=== PATIENT | female | born 2005 | race Caucasian/White ===

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

== ENCOUNTER 2025-04-15 21:05 | Observation (INO) ==
--- NOTE | 2025-04-15 21:31 | Emergency Department Note ---
History of Present Illness General Chief complaint: Flank Pain Stated complaint: RT CHEST/SHOULDER PAIN SINCE Time Seen by Provider: 04/15/25 21:28 History of Present Illness Maximum Pain Intensity: 7 This is an otherwise healthy 19-year-old female who presents to the emergency department via private vehicle with complaints of "right upper quadrant abdominal pain". The patient states this past Thursday when she woke up she began with pain to her right side. She points to the right upper quadrant just inferior to the right anterior/inferior rib region. It is worse with movement, talking/position changes. She states that pain has progressively worsened since this past Thursday. Earlier it was radiating to the right shoulder area. No central chest pain. Intermittent dyspnea. She does feel chills. No vomiting. She denies any pertinent past medical history, surgeries or allergies. There is no hormone use. No calf pain or swelling. No recent trips or travel. No recent surgeries. No history of PE/DVT. Home Medications Medication Instructions Recorded Confirmed Type No Known Home Medications 04/15/25 04/15/25 History Allergies Allergy/AdvReac Type Severity Reaction Status Date / Time No Known Allergies Allergy Verified 04/15/25 23:14 Past Med/Surg History Problem List (Updated 04/16/25 @ 04:17 by Jono Alcazar PA-C) Leukocytosis (Acute) Biliary colic (Acute) Elective induction of labor planned Medical History (Updated 04/16/25 @ 04:17 by Jono Alcazar PA-C) LGA (large for gestational age) fetus Anemia Iron infusions Surgical History History of ear surgery Removal of ear ring. Surgery on ear lobe. Family History (Updated 05/26/21 @ 14:12 by Lauren Chambers, CLAUDIO) Other No known health problems Social History (Updated 05/26/21 @ 14:14 by Lauren Chambers RN) Smoking Status: Current every day smoker Tobacco Type: Cigarettes Age Started Using Tobacco: 13 (Vaped for 1 year ); Second Hand Exposure: No; Do You Dip or Chew Tobacco: No; Tobacco Cessation Education Requested by Patient: No Hx Alcohol Use: No Hx Substance Use: Yes Last Used Substance: Unknown Preferred Language: Yemeni Communication Ability: Effective Visual Impairment: No Limitations Hearing Ability: Normal Mapping Technician Required: No Beliefs That Will Affect Care: None marital status: Single marital status details: Jorge Jackson Current Living Situation: Family Current Living Situation Comment: Lives with mom and dad. Other Information That Helps Us Care for You: No Feels Safe at Home: Yes Safety Concerns: Feels Safe At This Time Diet: regular Dental Care, Regularly: Yes Assistive Devices: Glasses Review of Systems A total of 10 systems reviewed and were otherwise negative Physical Exam Vital Signs Vital Signs - 24 hr 04/15/25 21:10 04/15/25 21:25 04/15/25 21:29 Temperature 37 C Temperature Source Temporal Artery Scan Pulse Rate 101 H 89 Pulse Rate [Apical] 94 H Pulse Rhythm [Apical] Regular Pulse Strength [Apical] Normal Respiratory Rate 16 16 Respiratory Effort / Characteristics Non-Labored Spontaneous Respiratory Depth Normal Respiratory Pattern Regular Blood Pressure 121/86 Blood Pressure [Left Arm] 101/63 Blood Pressure Mean 97 Blood Pressure Mean [Left Arm] 75 Pulse Oximetry 97 99 Oxygen Delivery Method Room Air Room Air Sepsis Recent Fever Within 48 Hours No Sepsis New/Unexplained Change in Mental Status No Sepsis Action Taken by Nursing No Action Required 04/15/25 21:29 04/15/25 23:30 04/16/25 01:17 Temperature Temperature Source Pulse Rate Pulse Rate [Apical] 84 80 Pulse Rhythm [Apical] Pulse Strength [Apical] Respiratory Rate 18 16 Respiratory Effort / Characteristics Respiratory Depth Respiratory Pattern Blood Pressure Blood Pressure [Left Arm] 106/66 107/73 Blood Pressure Mean Blood Pressure Mean [Left Arm] 79 84 Pulse Oximetry 99 99 98 Oxygen Delivery Method Room Air Room Air Sepsis Recent Fever Within 48 Hours Sepsis New/Unexplained Change in Mental Status Sepsis Action Taken by Nursing 04/16/25 01:24 Temperature Temperature Source Pulse Rate 98 H Pulse Rate [Apical] Pulse Rhythm [Apical] Pulse Strength [Apical] Respiratory Rate Respiratory Effort / Characteristics Respiratory Depth Respiratory Pattern Blood Pressure Blood Pressure [Left Arm] Blood Pressure Mean Blood Pressure Mean [Left Arm] Pulse Oximetry Oxygen Delivery Method Sepsis Recent Fever Within 48 Hours Sepsis New/Unexplained Change in Mental Status Sepsis Action Taken by Nursing VITAL SIGNS - Vital signs and nursing notes were reviewed. Stable and afebrile. GENERAL -19-year-old female appearing her stated age who is in no acute distress. Communicates well with provider and answers questions appropriately. SKIN - Without rashes. No meningeal or petechial rash. HEAD - NC/AT. EYES - PERRL with EOMI bilaterally. Sclera anicteric. EARS - No deformities of external structures noted on gross examination bilaterally. NOSE - Midline and without cyanosis. No epistaxis or purulent drainage noted. MOUTH/OROPHARYNX - Without perioral cyanosis. NECK - Neck with FROM. No nuchal rigidity. LUNGS - Chest wall symmetric without accessory muscle use, intercostals retractions, or central cyanosis. Normal vesicular breath sounds CTA B/L. No wheezes, rales, or rhonchi appreciated. CARDIAC - RRR ABDOMEN - Abdominal contour normal without pulsations or visible masses. BS normoactive all four quadrants. There is right upper quadrant abdominal tenderness to palpation. No guarding or rigidity. There is no tenderness overlying the ribs. EXTREMITIES - No clubbing or peripheral cyanosis. +5/5 strength noted in UE/LE bilaterally. NEUROLOGIC - Cranial nerves II through XII grossly intact. PSYCH -alert, oriented and pleasant on exam Course Administered Medications Sodium Chloride (Nss) 1,000 mls @ 75 mls/hr IV .[id number] [facility] Stop: 04/19/25 02:50 Last Admin: 04/16/25 03:13 Dose: 75 mls/hr Documented By: skye Acetaminophen (Ofirmev) 1,000 mg in 100 mls @ 400 mls/hr IV Q8H [facility] Stop: 04/19/25 02:59 Last Infusion: 04/16/25 03:50 Dose: Infused Documented By: skye Admin: 04/16/25 03:18 Dose: 400 mls/hr Documented By: skye Discontinued Medications Piperacillin Sod/Tazobactam Sod (Zosyn) 4.5 gm in 100 mls @ 200 mls/hr IV NOW STA; Protocol Stop: 04/16/25 03:26 Last Admin: 04/16/25 03:51 Dose: 200 mls/hr Documented By: skye Ketorolac Tromethamine (Ketorolac Tromethamine 15 Mg/Ml Vial) 10 mg IV NOW ONE Stop: 04/15/25 21:41 Last Admin: 04/15/25 21:47 Dose: 10 mg Documented By: tiffany Melatonin (Melatonin 3 Mg Tab) 3 mg PO HS ONE Stop: 04/16/25 01:52 Last Admin: 04/16/25 02:03 Dose: 3 mg Documented By: abl Medical Decision Making Laboratory Data 04/15/25 21:25 04/15/25 21:25 Lab Results 04/15/25 04/15/25 04/15/25 Range/Units 21:21 21:25 21:32 WBC 12.06 H (4.8-10.8) K/ul RBC 4.51 (4.20-5.40) M/uL Hgb 13.3 (12.0-16.0) g/dL Hct 40.1 (37.0-47.0) % MCV 88.9 (80.0-100.0) fL MCH 29.5 (25.0-34.0) pg MCHC 33.2 (32.0-36.0) g/dL RDW Std Deviation 43.4 (36.4-46.3) fL RDW Coeff of Gabriella 13.2 (11.5-14.5) % Plt Count 339 (130-400) K/uL MPV 10.6 (9.4-12.4) fL Immature Gran % (Auto) 0.3 % Neut % (Auto) 81.9 % Lymph % (Auto) 10.6 % [place] % (Auto) 6.3 % Eos % (Auto) 0.7 % Baso % (Auto) 0.2 % Neut # (Auto) 9.87 H (1.40-6.50) K/uL Lymph # (Auto) 1.28 (1.20-3.40) K/uL [place] # (Auto) 0.76 H (0.11-0.59) K/uL Eos # (Auto) 0.08 (0.00-0.50) K/uL Baso # (Auto) 0.03 (0.00-0.20) K/uL Immature Gran # (Auto) 0.04 (0.01-0.20) K/uL Sodium 138 (136-145) mmol/L Potassium 3.7 (3.5-5.1) mmol/L Chloride 106 (98-107) mmol/L Carbon Dioxide 23 (21-32) mmol/L Anion Gap 9 (3-11) BUN 8 (6-23) mg/dl Creatinine 0.64 (0.6-1.2) mg/dl Est Cr Clr Drug Dosing 116.9 ml/min eGFR 129.67 BUN/Creatinine Ratio 12.5 (10-20) Glucose 105 H (70-99(Fasting)) mg/dl Calcium 9.3 (8.6-10.3) mg/dl Total Bilirubin 0.6 (0.2-1.0) mg/dl AST 14 (13-39) U/L ALT 7 (7-52) U/L Alkaline Phosphatase 62 (34-104) U/L Troponin I High Sens < 2.3 (0-14) pg/ml Total Protein 7.0 (6.0-8.3) gm/dl Albumin 3.7 (3.4-5.0) gm/dl Globulin 3.3 (2.5-4.0) gm/dl Albumin/Globulin Ratio 1.1 (0.9-2) Lipase 9 L (11-82) U/L HCG, Qual Negative (Negative) Urine Color Yellow Urine Appearance Cloudy A (Clear) Urine pH 6.0 (4.5-7.5) Ur Specific [place] 1.031 H (1.000-1.030) Urine Protein Trace H (Negative) Urine Glucose (UA) Negative (Negative) Urine Ketones 2+ H (Negative) Urine Blood 2+ H (Negative) Urine Nitrite Negative (Negative) Urine Bilirubin Negative (Negative) Urine Urobilinogen Negative (Negative) Ur Leukocyte Esterase 2+ H (Negative) Urine WBC (Auto) >50 H (0-5) /hpf Urine RBC (Auto) 0-2 (0-2) /hpf U Hyaline Cast (Auto) 0-2 (0-2) /lpf U Epithel Cells (Auto) 11-20 H (0-2) /hpf Urine Bacteria (Auto) 3+ H (None Seen) POC Ur Test NEG (NEG) Urine Comment Imaging Data Radiologist's Impression: Gallbladder Ultrasound 04/15/25 21:40 Exam(s): US GALLBLADDER EXAM: US Abdomen Limited, Gallbladder CLINICAL HISTORY: RUQ abd pain. TECHNIQUE: Real-time ultrasound of the right upper quadrant with image documentation. COMPARISON: No relevant prior studies available. FINDINGS: Liver: The liver is heterogeneous in appearance, measuring 16.7 cm in length. The portal vein is patent with flow directed towards the liver. Gallbladder: Echogenic rounded structures noted in the gallbladder which appear to be non mobile, measuring up to 4 mm. There is also echogenic sludge in the gallbladder. The gallbladder wall measures 2.9 mm. No pericholecystic fluid. There is a reported positive sonographic Sampson's sign. Common bile duct: The common bile duct measures 3.7 mm. No stones. No dilation. Pancreas: Visualized segments of the pancreas are unremarkable. Right kidney: The right kidney measures 10.5 x 4.5 x 4.5 cm. Inferior vena cava: The IVC is unremarkable. Free fluid: No free fluid. IMPRESSION: 1. Echogenic rounded structures noted in the gallbladder which appear to be non mobile, measuring up to 4 mm. Favor gallbladder wall polyps over nonmobile gallstones. There is also echogenic sludge in the gallbladder. No associated sonographic findings to suggest acute cholecystitis. However, there is a reported positive sonographic Sampson's sign. Findings are equivocal sonographically. Functional radionuclide imaging of the gallbladder may be performed in clinically equivocal cases. 2. No biliary dilatation. Electronically signed by: Tay Sheridan MD 04/16/25 00:50 AM Chest X-Ray 04/15/25 21:41 Exam(s): XR CXR 1 VIEW EXAM: XR Chest, 1 View CLINICAL HISTORY: RUQ abd pain, dyspnea. TECHNIQUE: Frontal view of the chest. COMPARISON: No relevant prior studies available. FINDINGS: Lungs: No focal consolidation. The pulmonary vasculature demonstrates no significant radiographic abnormality. Pleural space: No significant abnormality. No pneumothorax. No large pleural effusion. Heart: No significant abnormality. No cardiomegaly. Mediastinum: No significant abnormality identified. The trachea is midline. Bones/joints: No significant abnormality. No acute fracture. IMPRESSION: No focal consolidation or acute cardiopulmonary process identified. Electronically signed by: Tay Sheridan MD 04/15/25 23:59 PM MDM Narrative Patient was seen and evaluated as above in room B03. Review was performed of triage nursing notes and vital signs. After obtaining a thorough history and physical examination the above work up was performed. Patient presents to us today with right upper quadrant abdominal pain. She is tender in the right upper quadrant on assessment. EKG performed noting right upper quadrant abdominal pain that radiates to the right scapular region. Per my interpretation this reveals normal sinus rhythm at a rate of 79 bpm. QTc 408. QRS 92. No ST elevation on this rhythm tracing. Options of care were discussed with the patient. IV access was established. Labs were drawn. IV Toradol was ordered for pain. Leukocytosis 12.06. No anemia. No emergent metabolic disturbance. Troponin negative. Lipase not elevated. hCG negative. Urinalysis with what is likely mildly contaminated sample. Ultrasound as above. Stones versus polyps in the gallbladder with some sludge. Chest x-ray per my interpretation negative for acute process. Noting the right upper quadrant abdominal tenderness, ultrasound findings of leukocytosis case was discussed with the general surgery service. They came to evaluate the patient. Please refer to further documentation regarding the patient's stay. Patient did request something to help sleep as she will be admitted to the hospital under observation with the general surgery service. I did order oral melatonin after discussing benefits vs risks with the patient. GCS: 15 In the evaluation and treatment of this patient the following differential diagnoses were entertained: Cholecystitis, pancreatitis, PE, pneumonia, among others. Impression & Plan Biliary colic, Leukocytosis Discharge Plan Visit Data Chief Complaint: Flank Pain Stated Complaint: RT CHEST/SHOULDER PAIN SINCE THU, SOB ED Provider: Milan Vee ED Midlevel Provider: Jono Alcazar Discharge Problem: Biliary colic, Leukocytosis Patient Disposition: Admitted As Inpatient Condition: Good Discharge Instructions Interventions: ED Discharge Assessment Last Done: 04/16/25 02:35
[2025-04-15] MEDS: KETOROLAC TROMETHAMINE 15 MG/ML VIAL IV ONE (21:47)
[2025-04-15 22:10] LABS: Appearance Urine Cloudy (Clear); Bacteria Urine Automated 3+ (None Seen); Cast Urine Automated 0-2 /lpf (0-2); Glucose Urine UA Negative (Negative); RBC Urine Automated 0-2 /hpf (0-2); WBC Urine Automated >50 /hpf (0-5)
[2025-04-15 22:16] LABS: Alanine Aminotransferase 7 U/L (7-52); Albumin Globulin Ratio 1.1 (0.9-2); Albumin Level 3.7 gm/dl (3.4-5.0); Alkaline Phosphatase 62 U/L (34-104); Anion Gap 9 (3-11); Bilirubin,Total 0.6 mg/dl (0.2-1.0); Blood Urea Nitrogen 8 mg/dl (6-23); Calcium 9.3 mg/dl (8.6-10.3); Carbon Dioxide 23 mmol/L (21-32); Chloride 106 mmol/L (98-107); Creatinine Clr Calc Pharmacy 116.9 ml/min; Globulin 3.3 gm/dl (2.5-4.0); Glucose 105 mg/dl (70-99(Fasting)); Lipase 9 U/L (11-82); Potassium 3.7 mmol/L (3.5-5.1); Sodium 138 mmol/L (136-145); Total Protein 7.0 gm/dl (6.0-8.3)
[2025-04-15 22:25] LABS: Pregnancy Test, Serum Negative (Negative)
[2025-04-15 22:46] LABS: Hematocrit (blood only) 40.1 % (37.0-47.0); Hemoglobin 13.3 g/dL (12.0-16.0); Immature Granulocytes # (auto) 0.04 K/uL (0.01-0.20); Immature Granulocytes % (auto) 0.3 %; Mean Corpuscular Hemoglobin 29.5 pg (25.0-34.0); Mean Corpuscular Volume 88.9 fL (80.0-100.0); Platelet Count 339 K/uL (130-400); RDW Standard Deviation 43.4 fL (36.4-46.3); Red Blood Count 4.51 M/uL (4.20-5.40); White Blood Count 12.06 K/ul (4.8-10.8)
--- NOTE | 2025-04-16 | XRay Report ---
Exam(s): XR CXR 1 VIEW EXAM: XR Chest, 1 View CLINICAL HISTORY: RUQ abd pain, dyspnea. TECHNIQUE: Frontal view of the chest. COMPARISON: No relevant prior studies available. FINDINGS: Lungs: No focal consolidation. The pulmonary vasculature demonstrates no significant radiographic abnormality. Pleural space: No significant abnormality. No pneumothorax. No large pleural effusion. Heart: No significant abnormality. No cardiomegaly. Mediastinum: No significant abnormality identified. The trachea is midline. Bones/joints: No significant abnormality. No acute fracture. IMPRESSION: No focal consolidation or acute cardiopulmonary process identified. Electronically signed by: Tay Sheridan MD 04/15/25 23:59 PM
--- NOTE | 2025-04-16 00:51 | Ultrasound Report ---
Exam(s): US GALLBLADDER EXAM: US Abdomen Limited, Gallbladder CLINICAL HISTORY: RUQ abd pain. TECHNIQUE: Real-time ultrasound of the right upper quadrant with image documentation. COMPARISON: No relevant prior studies available. FINDINGS: Liver: The liver is heterogeneous in appearance, measuring 16.7 cm in length. The portal vein is patent with flow directed towards the liver. Gallbladder: Echogenic rounded structures noted in the gallbladder which appear to be non mobile, measuring up to 4 mm. There is also echogenic sludge in the gallbladder. The gallbladder wall measures 2.9 mm. No pericholecystic fluid. There is a reported positive sonographic Sampson's sign. Common bile duct: The common bile duct measures 3.7 mm. No stones. No dilation. Pancreas: Visualized segments of the pancreas are unremarkable. Right kidney: The right kidney measures 10.5 x 4.5 x 4.5 cm. Inferior vena cava: The IVC is unremarkable. Free fluid: No free fluid. IMPRESSION: 1. Echogenic rounded structures noted in the gallbladder which appear to be non mobile, measuring up to 4 mm. Favor gallbladder wall polyps over nonmobile gallstones. There is also echogenic sludge in the gallbladder. No associated sonographic findings to suggest acute cholecystitis. However, there is a reported positive sonographic Sampson's sign. Findings are equivocal sonographically. Functional radionuclide imaging of the gallbladder may be performed in clinically equivocal cases. 2. No biliary dilatation. Electronically signed by: Tay Sheridan MD 04/16/25 00:50 AM
--- NOTE | 2025-04-16 01:38 | History & Physical Report ---
Date of Service April 16, 2025 Assessment & Plan (1) Biliary colic: Plan: Patient is a 19-year-old female who presented to the emergency room with RUQ abdominal pain for the last 4 days. Upon workup she was found to have a WBC of 12.06, LFT wnl, and US findings of gallstones vs polyps with sludge. The patient was seen and evaluated in the emergency department this morning. Despite receiving pain medication she is still having significant right upper quadrant a bdominal pain and is tender on exam. I did discuss with the patient treatment options and she would like to undergo surgical intervention if warranted. For now we will admit the patient under the surgical service for observation. Keep n.p.o., IV fluid hydration, pain control, and antiemetics as needed. Patient started on IV Zosyn for antibiotic coverage. Will discuss patient's case with attending surgeon, Dr. Murray and final surgical plans to follow. History of Present Illness Chief Complaint: RUQ abdominal pain The patient is a 19-year-old female who presented to the emergency department with complaints of right upper quadrant abdominal pain. The patient states the pain started roughly 4 days ago that had woken her up from sleep. The patient states that the pain has been ongoing since and has progressively gotten worse. Patient states that the pain at times does radiate into her ribs and to the back of her right shoulder. States that certain movements also makes the pain worse at times. The patient denies any associated nausea, vomiting, fevers or chills. Due to the ongoing pain she came to the ED for further evaluation, upon workup she was found to have a slight leukocytosis of 12.06 and ultrasound imaging concerning for gallstones versus polyps with sludge. At that time general surgery was consulted for further evaluation of the patient. The patient was seen and evaluated early this morning in the emergency department. She is resting comfortably in bed, vital signs are stable, and is nontoxic-appearing. The patient states that despite receiving pain medication she is still having ongoing right upper quadrant pain at this time. On exam she does have tenderness in the right upper quadrant with positive Sampson sign. The patient otherwise denies any medical or surgical history, however she does smoke marijuana regularly. Allergies Allergy/AdvReac Type Severity Reaction Status Date / Time No Known Allergies Allergy Verified 04/15/25 23:14 Home Medications Medication Instructions Recorded Confirmed Type No Known Home Medications 04/15/25 04/15/25 History Past Med/Surg History Problem List (Updated 04/16/25 @ 07:38 by Twin Drake MD) Encounter for pre-operative examination LGA (large for gestational age) fetus Leukocytosis (Acute) Biliary colic (Acute) Elective induction of labor planned Medical History LGA (large for gestational age) fetus Anemia Iron infusions Surgical History History of ear surgery Removal of ear ring. Surgery on ear lobe. Family History Other No known health problems Social History (Updated 05/26/21 @ 14:14 by Lauren Chambers RN) Smoking Status: Current every day smoker Tobacco Type: Cigarettes Age Started Using Tobacco: 13 (Vaped for 1 year ); Second Hand Exposure: No; Do You Dip or Chew Tobacco: No; Tobacco Cessation Education Requested by Patient: No Hx Alcohol Use: No Hx Substance Use: Yes Last Used Substance: Unknown Preferred Language: [place] Communication Ability: Effective Visual Impairment: No Limitations Hearing Ability: Normal Joint Creaser Required: No Beliefs That Will Affect Care: None marital status: Single marital status details: Jorge Jackson Current Living Situation: Family Current Living Situation Comment: Lives with mom and dad. Other Information That Helps Us Care for You: No Feels Safe at Home: Yes Safety Concerns: Feels Safe At This Time Diet: regular Dental Care, Regularly: Yes Assistive Devices: Glasses Review of Systems Constitutional: no fever, no chills and no body aches Respiratory: no cough and no chest congestion Cardiovascular: no chest pain, no palpitations and no syncope Gastrointestinal: + abdominal pain; no nausea, no vomiting and no change in bowel habits Genitourinary: no difficulty urinating and no hematuria Physical Exam Constitutional: WD/WN, vitals as above Respiratory: normal respiratory effort, lungs clear to auscultation Cardiovascular: RRR, no murmur, no edema Gastrointestinal (Abdomen): Abdomen soft, nondistended, +TTP in the RUQ with +Sampson's sign No rebound, guarding or signs of peritonitis Skin: no rashes, warm and dry Results & Data Results & Data Vital Signs (Past 12 Hours) Vital Signs Temp Pulse Pulse Resp BP BP Pulse Ox 04/16/25 01:24 98 H 04/16/25 01:17 80 16 107/73 98 04/15/25 23:30 84 18 106/66 99 04/15/25 21:29 99 04/15/25 21:29 94 H 16 101/63 99 04/15/25 21:25 89 04/15/25 21:10 37 C 101 H 16 121/86 97 O2 Del Method 04/16/25 01:24 04/16/25 01:17 Room Air 04/15/25 23:30 04/15/25 21:29 Room Air 04/15/25 21:29 Room Air 04/15/25 21:25 04/15/25 21:10 Room Air Diagnostic Findings Exam(s): US GALLBLADDER EXAM: US Abdomen Limited, Gallbladder CLINICAL HISTORY: RUQ abd pain. TECHNIQUE: Real-time ultrasound of the right upper quadrant with image documentation. COMPARISON: No relevant prior studies available. FINDINGS: Liver: The liver is heterogeneous in appearance, measuring 16.7 cm in length. The portal vein is patent with flow directed towards the liver. Gallbladder: Echogenic rounded structures noted in the gallbladder which appear to be non mobile, measuring up to 4 mm. There is also echogenic sludge in the gallbladder. The gallbladder wall measures 2.9 mm. No pericholecystic fluid. There is a reported positive sonographic Sampson's sign. Common bile duct: The common bile duct measures 3.7 mm. No stones. No dilation. Pancreas: Visualized segments of the pancreas are unremarkable. Right kidney: The right kidney measures 10.5 x 4.5 x 4.5 cm. Inferior vena cava: The IVC is unremarkable. Free fluid: No free fluid. IMPRESSION: 1. Echogenic rounded structures noted in the gallbladder which appear to be non mobile, measuring up to 4 mm. Favor gallbladder wall polyps over nonmobile gallstones. There is also echogenic sludge in the gallbladder. No associated sonographic findings to suggest acute cholecystitis. However, there is a reported positive sonographic Sampson's sign. Findings are equivocal sonographically. Functional radionuclide imaging of the gallbladder may be performed in clinically equivocal cases. 2. No biliary dilatation. Code Status & VTE Plan VTE Prophylaxis Plan VTE Prophylaxis will be ordered: Yes Supervising Physician Co-Signing Physician Notes I personally saw and evaluated the patient and agree with the assessment and plan of Yobani Jain PA-C 19-year-old female with symptomatic gallbladder sludge versus acute cholecystitis Her ultrasound images and results were personally viewed and interpreted by myself She does have some sludge without any lu signs of cholecystitis She continues to have right sided pain Will plan on a laparoscopic cholecystectomy, possible open, possible intraoperative cholangiogram Consent was obtained, risks discussed including bleeding, infection, bile leak, ductal injury PG Care Time/CCT Total # of Minutes Spent Total Time Spent with Patient: Total time spent is greater than 50% in coordination of care (as documented) at patient's floor/unit and/or counseling patient: [place] [address] INT INP/OBS CARE 1/40MIN Patient Type New Medical Decision Making Straight Forward Diagnoses Biliary colic K80.50
[2025-04-16] MEDS: MELATONIN 3 MG TAB PO ONE (02:03)
[2025-04-16] MEDS ORDERED: HYDROmorphone INJ 0.5 MG/0.5 ML SYR IV PRN (02:51)
[2025-04-16] MEDS: SODIUM CHLORIDE 0.9% 1,000 ML IV SCH (03:13)
[2025-04-16] MEDS: ACETAMINOPHEN 1,000 MG/100 ML VIAL IV SCH (03:18)
[2025-04-16] MEDS: PIPERACILLIN/TAZOBACTAM 4.5 GM/100 ML BAG IV STA (03:51)
--- NOTE | 2025-04-16 07:38 | Anesthesiology Consultation ---
Date of Service April 16, 2025 Assessment & Plan (1) Encounter for pre-operative examination: Chart Review Chart Review: Acceptable Risk for Surgery History Surgery Operation Date: 04/16/25 09:30 Proposed Procedures p Laparoscopic Cholecystectomy - Royal Murray DO Height/Weight Height: 5 ft 4 in Weight: 52.8 kg Allergies Allergy/AdvReac Type Severity Reaction Status Date / Time No Known Allergies Allergy Verified 04/15/25 23:14 Medications Home Medications Medication Instructions Recorded Confirmed Last Taken No Known Home Medications 04/15/25 04/15/25 Unknown Active Medications Generic Name Dose Route Start Last Admin Trade Name Freq PRN Reason Stop Dose Admin Sodium Chloride 1,000 mls @ 75 mls/hr 04/16/25 02:51 04/16/25 03:13 Nss IV 04/19/25 02:50 75 mls/hr .[id number] NATHANIEL Administration Acetaminophen 1,000 mg in 100 mls @ 400 mls/hr 04/16/25 03:00 04/16/25 03:50 Ofirmev IV 04/19/25 02:59 Infused Q8H NATHANIEL Infusion Past Medical History Medical History (Updated 04/16/25 @ 07:38 by Twin Drake MD) Anemia Iron infusions Past Family History Family History Other No known health problems Past Surgical History Surgical History History of ear surgery Removal of ear ring. Surgery on ear lobe. Social History Smoking Status: Current every day smoker tobacco type: e-cigarettes Do You Dip or Chew Tobacco: No Hx Alcohol Use: No Hx Substance Use: Yes substance use type: marijuana Last Used Substance: Unknown Physical Exam Vital Signs Last Vital Signs Temp 36.7 C 04/16/25 02:55 Pulse 85 04/16/25 02:55 Resp 18 04/16/25 02:55 BP 98/64 L 04/16/25 02:55 Pulse Ox 98 04/16/25 02:55 O2 Del Method Room Air 04/16/25 02:55 Testing Laboratory Results 04/15/25 21:25 04/15/25 21:25 Urine Color Yellow 04/15/25 21:21 Urine Appearance Cloudy (Clear) A 04/15/25: Urine pH 6.0 (4.5-7.5) 04/15/25 21:21 Ur Specific [place] 1.031 (1.000-1.030) H 04/15/25 21:21 Urine Protein Trace (Negative) H 04/15/25 21:21 Urine Glucose (UA) Negative (Negative) 04/15/25 21:21 Urine Ketones 2+ (Negative) H 04/15/25 21:21 Urine Nitrite Negative (Negative) 04/15/25 21:21 Ur Leukocyte Esterase 2+ (Negative) H 04/15/25 21:21 Urine WBC (Auto) >50 /hpf (0-5) H 04/15/25 21:21 Urine RBC (Auto) 0-2 /hpf (0-2) 04/15/25 21:21 U Hyaline Cast (Auto) 0-2 /lpf (0-2) 04/15/25 21:21 U Epithel Cells (Auto) 11-20 /hpf (0-2) H 04/15/25 21:21 Urine Bacteria (Auto) 3+ (None Seen) H 04/15/25 21:21 04/15/25 21:21 Urine Culture - Preliminary Urine,Clean Catch No growth - Less than 1,000 colonies/mL, Final report to follow. 04/15/25 21:32 POC Ur Test NEG
[2025-04-16] MEDS: PIPERACILLIN/TAZOBACTAM 4.5 GM/100 ML BAG IV SCH (08:20)
[2025-04-16] MEDS: BUPIVACAINE/EPINEPHRINE 0.25% 1:200,000 30 ML VIAL ONE (09:34)
--- NOTE | 2025-04-16 09:44 | Electrocardiogram Report ---
Test Reason : Blood Pressure : */* mmHG Vent. Rate : 79 BPM Atrial Rate : 79 BPM P-R Int : 182 ms QRS Dur : 92 ms QT Int : 356 ms P-R-T Axes : 71 64 64 degrees QTcB Int : 408 ms Normal sinus rhythm Normal ECG No previous ECGs available Confirmed by Storm Del Rosario ([id number]) on 04/16/2025 9:44:30 AM Referred By: REFERRED SELF Confirmed By: Storm Del Rosario
[2025-04-16] MEDS ORDERED: PROMETHAZINE HCL 6.25 MG in SODIUM CHLORIDE 0.9% 50 ML IV PRN (10:34)
[2025-04-16] MEDS ORDERED: KETOROLAC 30 MG/ML VIAL IV PRN (10:34)
[2025-04-16] MEDS ORDERED: ATROPINE SULFATE 0.1 MG/ML 10ML SYR IV PRN (10:34)
[2025-04-16 10:37] LABS: Hematocrit (blood only) 36.1 % (37.0-47.0); Hemoglobin 11.7 g/dL (12.0-16.0); Immature Granulocytes # (auto) 0.04 K/uL (0.01-0.20); Immature Granulocytes % (auto) 0.4 %; Mean Corpuscular Hemoglobin 29.1 pg (25.0-34.0); Mean Corpuscular Volume 89.8 fL (80.0-100.0); Platelet Count 298 K/uL (130-400); RDW Standard Deviation 43.8 fL (36.4-46.3); Red Blood Count 4.02 M/uL (4.20-5.40); White Blood Count 10.05 K/ul (4.8-10.8)
[2025-04-16] MEDS ORDERED: ROCURONIUM BROMIDE 10 MG/ML 5 ML VIAL IV ONE (10:41)
[2025-04-16] MEDS ORDERED: DEXAMETHASONE SOD INJ 4 MG/ML VIAL ONE (10:41)
[2025-04-16] MEDS ORDERED: LIDOCAINE 2% 2 ML VIAL/AMP(20MG/ML) INFIL ONE (10:41)
[2025-04-16] MEDS ORDERED: PROPOFOL IV EMULSION 10 MG/ML 20 ML VIAL IV ONE ×2 (10:41→11:42)
[2025-04-16] MEDS ORDERED: ONDANSETRON INJ 2 MG/ML 2 ML VIAL ONE (10:41)
[2025-04-16] MEDS ORDERED: MIDAZOLAM HCL 1 MG/ML 2ML VIAL ONE (10:42)
[2025-04-16 10:53] LABS: Anion Gap 7.0 (3-11); Blood Urea Nitrogen 10.0 mg/dl (6-23); Calcium 8.8 mg/dl (8.6-10.3); Carbon Dioxide 26.0 mmol/L (21-32); Chloride 106.0 mmol/L (98-107); Creatinine Clr Calc Pharmacy 116.9 ml/min; Glucose 95.0 mg/dl (70-99(Fasting)); Potassium 3.8 mmol/L (3.5-5.1); Sodium 139.0 mmol/L (136-145)
[2025-04-16] MEDS ORDERED: SUGAMMADEX SODIUM 200 MG/2 ML VIAL IV ONE (11:31)
--- NOTE | 2025-04-16 11:47 | Post Operative Brief Note ---
PG Immediate Post Op with CF Date of Surgery April 16, 2025 Pre & Post Diagnosis Operation Date: 04/16/25 09:30 Pre-Op Diagnosis: Biliary colic Post-Op Diagnosis: Biliary colic, Right adnexal inflammation I identified the patient and participated in the time-out.: Yes Procedure Operation Date: 04/16/25 09:30 Actual Procedures p Laparoscopic Cholecystectomy(Not Applicable) - Royal Murray DO Surgeon Royal Murray DO Associate Brand Manager Kya Corral PA-C Estimated Blood Loss 5 Findings Consistent with Post-Op Diagnosis Specimens Specimen Description: A: Gallbladder and contents Anesthesia Type General Complications none Disposition Disposition: Recovery Room
--- NOTE | 2025-04-16 11:51 | Operative Report ---
PG Post Operative Report Pre & Post Diagnosis Operation Date: 04/16/25 09:30 Pre-Op Diagnosis: Biliary colic Post-Op Diagnosis: Biliary colic, right adnexal inflammation I identified the patient and participated in the time-out.: Yes Procedure Operation Date: 04/16/25 09:30 Actual Procedures p Laparoscopic Cholecystectomy(Not Applicable) - Royal Murray DO Surgeon Royal Murray DO Terrazzo Worker Kya Corral PA-C Estimated Blood Loss 5 Findings Consistent with Post-Op Diagnosis Fluids see anesthesia record Specimens Gallbladder to pathology Drains None Anesthesia Type General Complications none Disposition Disposition: Recovery Room Indications 19 yo female with gallbladder sludge and right sided abdominal pain Description of Procedure The patient was brought to the operating room and placed in the supine position with both arms extended. At this time she underwent general endotracheal anesthesia without any problems. She was given appropriate pre-operative antibiotics. Her abdomen prepped and draped in the usual sterile fashion. A timeout was called, the procedure was verified as Laparoscopic cholecystectomy, possible open, possible intra-operative cholangiogram. Surgical, nursing and anesthesia teams agreed and the procedure was begun. After injection of 0.25% Marcaine with epinephrine, a infraumbilical vertical incision was made and carried down to the fascia using S-retractors. The abdominal wall was then elevated with towel clamps and abdomen entered using the Veress needle confirming position using the saline drop test. Pneumoperitoneum was established. 5mm trocar was placed. Laparoscope was introduced. No injury from entry into the abdomen was visualized after inspection of the abdomen. Three further ports were placed under direct visualization. One 11mm in the subxiphoid region and two 5mm in the RUQ. At this time the abdomen was inspected and the gallbladder identified. The gallbladder fundus was grasped and retracted cephalad. The entire abdomen appeared erythematous. The gallbladder infundibulum was then grasped and retracted laterally. The cystic duct and cystic artery were then identified and skeletonized. The critical view of safety was obtained. They were both then clipped twice proximally and once distally and then divided using scissors. The gallbladder was then taken off of the liver bed using electrocautery and placed in an endocatch bag and removed from the subxiphoid port. The liver bed was then inspected and no bile leak or bleeding was evident. Using the laparoscope the abdomen was explored. The right lower quadrant revealed some purulence in the right adnexa along with some erythema. The appendix itself was mildly dilated but did not appear because of the inflammation. The appendix was left in place. The subxiphoid port was then closed using 0-Vicryl using the suture passer. The trocars were then removed under direct visualization and no bleeding was present. Abdomen was desufflated. The skin was then closed using 4-0 Monocryl in a subcuticular fashion. Surgical glue was applied. Needle and sponge counts were correct x 2. At this time the patient was awoken from anesthesia and extubated having remained stable throughout the entire case. The patient was then transported to PACU in stable condition. I attest to the content of the Intraoperative Record and any orders documented therein. Any exceptions are noted below.
[2025-04-16 13:32] VITALS: RESP 16
--- NOTE | 2025-04-16 13:34 | OB/GYN Consultation ---
Date of Consultation April 16, 2025 Assessment & Plan (1) PID (acute pelvic inflammatory disease): patient is a 19-year-old -0-0-1 who is postop from laparoscopic cholecystectomy by general surgery who noted signs suggesting PID and ovarian cysts. Patient denies any history of STDs nor pelvic pain. I collected vaginal cultures with Q-tip and plan to do a transvaginal ultrasound when she feels better either tonight or tomorrow morning if not it can be done as an outpatient to. Recommend IV antibiotic therapy for presumed PID, I placed orders and will switch to p.o. tomorrow when she is discharged. All questions were answered. (2) Abdominal pain: (3) Post-op pain: (4) Biliary colic: History of Present Illness Reason for Consultation: PID/ovarian cyst noted during laparoscopic cholecystectomy Attending Physician: Royal Murray, DO History of Present Illness patient is a 19-year-old -0-0-1 female who came to ER with generalized abdominal pain and found to have cholecystitis. She was taken to the OR This morning by Dr. Murray for laparoscopic cholecystectomy when edema, inflammation noted on the fallopian tubes as well as ovarian cyst. I was consulted for consult and possible treat for PID. patient states she had right upper quadrant pain radiating to her right shoulder, denies lower abdominal or pelvic pain. Patient denies abnormal vaginal discharge, itching or smell. She has not been sexually active for long time. She denies any history of STDs including chlamydia gonorrhea or herpes. She gets periods every 4 weeks and they last for 5 days and no pain with them either. Now she complains of generalized abdominal pain due to recent surgery. I ask her to call like cultures but I just created and she accepted. According to surgical team there was a cyst on her ovary, I talked about pelvic ultrasound either tonight when she feels better or tomorrow morning when she leaves. Patient states she she will be able to have it done tonight when she is able to get up and walk and eat. Allergies Allergy/AdvReac Type Severity Reaction Status Date / Time No Known Allergies Allergy Verified 04/15/25 23:14 Home Medications Medication Instructions Recorded Confirmed Type No Known Home Medications 04/15/25 04/15/25 History Patient History Medical History Anemia Iron infusions Surgical History History of ear surgery Removal of ear ring. Surgery on ear lobe. Family History Other No known health problems Social History Smoking Status: Current every day smoker Tobacco Type: Cigarettes Age Started Using Tobacco: 13 (Vaped for 1 year ); Second Hand Exposure: No; Do You Dip or Chew Tobacco: No; Tobacco Cessation Education Requested by Patient: No Hx Alcohol Use: No Hx Substance Use: Yes Last Used Substance: Unknown Preferred Language: Malay Communication Ability: Effective Visual Impairment: No Limitations Hearing Ability: Normal Nutrition Worker Required: No Beliefs That Will Affect Care: None marital status: Single marital status details: Jorge Jackson Current Living Situation: Family Current Living Situation Comment: Lives with mom and dad. Other Information That Helps Us Care for You: No Feels Safe at Home: Yes Safety Concerns: Feels Safe At This Time Diet: regular Dental Care, Regularly: Yes Assistive Devices: Glasses Review of Systems Constitutional: as per Subjective / HPI Physical Exam Constitutional: WD/WN, vitals as above well developed, well nourished and + acute distress ( postop) Gastrointestinal (Abdomen): Inspection/Auscultation: abdomen normal to inspection and + abdominal surgical incision Abdomen is flat, appropriately tender. Patient is a clean dry intact. Genitourinary: deferred, cultures were taken with Q-tip At the bedside with her nurse. Results & Data Vital Signs (Past 12 Hours) Vital Signs Temp Pulse Pulse Pulse Resp BP BP 04/16/25 12:58 37.1 C 79 15 105/66 04/16/25 12:45 81 21 113/72 04/16/25 12:35 37.1 C 85 18 119/66 04/16/25 12:25 85 18 116/70 04/16/25 12:15 88 18 113/68 04/16/25 12:07 36.6 C 103 H 20 118/76 04/16/25 07:00 36.7 C 70 16 95/57 L 04/16/25 02:55 36.7 C 85 18 98/64 L 04/16/25 02:35 85 18 108/66 Pulse Ox O2 Del Method O2 Flow Rate 04/16/25 12:58 97 Room Air 04/16/25 12:45 97 Room Air 04/16/25 12:35 97 Room Air 04/16/25 12:25 100 Nasal Cannula 2 04/16/25 12:15 100 Nasal Cannula 2 04/16/25 12:07 99 Nasal Cannula 4 04/16/25 07:00 98 Room Air 04/16/25 02:55 98 Room Air 04/16/25 02:35 98 Room Air Laboratory Results Lab Results 04/15/25 04/15/25 04/15/25 Range/Units 21:21 21:25 21:32 WBC 12.06 H (4.8-10.8) K/ul RBC 4.51 (4.20-5.40) M/uL Hgb 13.3 (12.0-16.0) g/dL Hct 40.1 (37.0-47.0) % MCV 88.9 (80.0-100.0) fL MCH 29.5 (25.0-34.0) pg MCHC 33.2 (32.0-36.0) g/dL RDW Std Deviation 43.4 (36.4-46.3) fL RDW Coeff of Gabriella 13.2 (11.5-14.5) % Plt Count 339 (130-400) K/uL MPV 10.6 (9.4-12.4) fL Immature Gran % (Auto) 0.3 % Neut % (Auto) 81.9 % Lymph % (Auto) 10.6 % [place] % (Auto) 6.3 % Eos % (Auto) 0.7 % Baso % (Auto) 0.2 % Neut # (Auto) 9.87 H (1.40-6.50) K/uL Lymph # (Auto) 1.28 (1.20-3.40) K/uL [place] # (Auto) 0.76 H (0.11-0.59) K/uL Eos # (Auto) 0.08 (0.00-0.50) K/uL Baso # (Auto) 0.03 (0.00-0.20) K/uL Immature Gran # (Auto) 0.04 (0.01-0.20) K/uL Sodium 138 (136-145) mmol/L Potassium 3.7 (3.5-5.1) mmol/L Chloride 106 (98-107) mmol/L Carbon Dioxide 23 (21-32) mmol/L Anion Gap 9 (3-11) BUN 8 (6-23) mg/dl Creatinine 0.64 (0.6-1.2) mg/dl Est Cr Clr Drug Dosing 116.9 ml/min eGFR 129.67 BUN/Creatinine Ratio 12.5 (10-20) Glucose 105 H (70-99(Fasting)) mg/dl Calcium 9.3 (8.6-10.3) mg/dl Total Bilirubin 0.6 (0.2-1.0) mg/dl AST 14 (13-39) U/L ALT 7 (7-52) U/L Alkaline Phosphatase 62 (34-104) U/L Troponin I High Sens < 2.3 (0-14) pg/ml Total Protein 7.0 (6.0-8.3) gm/dl Albumin 3.7 (3.4-5.0) gm/dl Globulin 3.3 (2.5-4.0) gm/dl Albumin/Globulin Ratio 1.1 (0.9-2) Lipase 9 L (11-82) U/L HCG, Qual Negative (Negative) Urine Color Yellow Urine Appearance Cloudy A (Clear) Urine pH 6.0 (4.5-7.5) Ur Specific [place] 1.031 H (1.000-1.030) Urine Protein Trace H (Negative) Urine Glucose (UA) Negative (Negative) Urine Ketones 2+ H (Negative) Urine Blood 2+ H (Negative) Urine Nitrite Negative (Negative) Urine Bilirubin Negative (Negative) Urine Urobilinogen Negative (Negative) Ur Leukocyte Esterase 2+ H (Negative) Urine WBC (Auto) >50 H (0-5) /hpf Urine RBC (Auto) 0-2 (0-2) /hpf U Hyaline Cast (Auto) 0-2 (0-2) /lpf U Epithel Cells (Auto) 11-20 H (0-2) /hpf Urine Bacteria (Auto) 3+ H (None Seen) POC Ur Test NEG (NEG) Urine Comment 12/21/25 Range/Units 10:09 WBC 10.05 (4.8-10.8) K/ul RBC 4.02 L (4.20-5.40) M/uL Hgb 11.7 L (12.0-16.0) g/dL Hct 36.1 L (37.0-47.0) % MCV 89.8 (80.0-100.0) fL MCH 29.1 (25.0-34.0) pg MCHC 32.4 (32.0-36.0) g/dL RDW Std Deviation 43.8 (36.4-46.3) fL RDW Coeff of Gabriella 13.2 (11.5-14.5) % Plt Count 298 (130-400) K/uL MPV 9.9 (9.4-12.4) fL Immature Gran % (Auto) 0.4 % Neut % (Auto) 81.0 % Lymph % (Auto) 11.1 % [place] % (Auto) 6.2 % Eos % (Auto) 1.1 % Baso % (Auto) 0.2 % Neut # (Auto) 8.14 H (1.40-6.50) K/uL Lymph # (Auto) 1.12 L (1.20-3.40) K/uL [place] # (Auto) 0.62 H (0.11-0.59) K/uL Eos # (Auto) 0.11 (0.00-0.50) K/uL Baso # (Auto) 0.02 (0.00-0.20) K/uL Immature Gran # (Auto) 0.04 (0.01-0.20) K/uL Sodium 139 (136-145) mmol/L Potassium 3.8 (3.5-5.1) mmol/L Chloride 106 (98-107) mmol/L Carbon Dioxide 26 (21-32) mmol/L Anion Gap 7 (3-11) BUN 10 (6-23) mg/dl Creatinine 0.64 (0.6-1.2) mg/dl Est Cr Clr Drug Dosing 116.9 ml/min eGFR 129.67 BUN/Creatinine Ratio 15.6 (10-20) Glucose 95 (70-99(Fasting)) mg/dl Calcium 8.8 (8.6-10.3) mg/dl Total Bilirubin (0.2-1.0) mg/dl AST (13-39) U/L ALT (7-52) U/L Alkaline Phosphatase (34-104) U/L Troponin I High Sens (0-14) pg/ml Total Protein (6.0-8.3) gm/dl Albumin (3.4-5.0) gm/dl Globulin (2.5-4.0) gm/dl Albumin/Globulin Ratio (0.9-2) Lipase (11-82) U/L HCG, Qual (Negative) Urine Color Urine Appearance (Clear) Urine pH (4.5-7.5) Ur Specific [place] (1.000-1.030) Urine Protein (Negative) Urine Glucose (UA) (Negative) Urine Ketones (Negative) Urine Blood (Negative) Urine Nitrite (Negative) Urine Bilirubin (Negative) Urine Urobilinogen (Negative) Ur Leukocyte Esterase (Negative) Urine WBC (Auto) (0-5) /hpf Urine RBC (Auto) (0-2) /hpf U Hyaline Cast (Auto) (0-2) /lpf U Epithel Cells (Auto) (0-2) /hpf Urine Bacteria (Auto) (None Seen) POC Ur Test (NEG) Urine Comment (2) Abdominal pain Abdominal location: right upper quadrant Qualified Code(s): R10.11 - Right upper quadrant pain
[2025-04-16] MEDS: HYDROmorphone INJ 0.5 MG/0.5 ML SYR IV PRN (13:39)
[2025-04-16] MEDS: ONDANSETRON INJ 2 MG/ML 2 ML VIAL IV PRN (13:48)
[2025-04-16] MEDS: PROMETHAZINE HCL INJ 25 MG/ML 1 ML VIAL ONE (13:53)
[2025-04-16] MEDS: SODIUM CHLORIDE 0.9% 50 ML BAG ONE (13:53)
--- NOTE | 2025-04-16 14:46 | Anesthesiology Progress Note ---
Date of Service April 16, 2025 Anesthesia Post Procedure Vital Signs Vital Signs: Temp Pulse Pulse Pulse Resp BP BP 04/16/25 13:55 36.8 C 84 16 120/75 04/16/25 13:29 36.8 C 75 16 106/70 04/16/25 12:58 37.1 C 79 15 105/66 04/16/25 12:45 81 21 113/72 04/16/25 12:35 37.1 C 85 18 119/66 04/16/25 12:25 85 18 116/70 04/16/25 12:15 88 18 113/68 04/16/25 12:07 36.6 C 103 H 20 118/76 04/16/25 07:00 36.7 C 70 16 95/57 L 04/16/25 02:55 36.7 C 85 18 98/64 L 04/16/25 02:35 85 18 108/66 04/16/25 01:24 98 H 04/16/25 01:17 80 16 107/73 04/15/25 23:30 84 18 106/66 04/15/25 21:29 04/15/25 21:29 94 H 16 101/63 04/15/25 21:25 89 04/15/25 21:10 37 C 101 H 16 121/86 Pulse Ox O2 Del Method O2 Flow Rate 04/16/25 13:55 99 Room Air 04/16/25 13:29 97 Room Air 04/16/25 12:58 97 Room Air 04/16/25 12:45 97 Room Air 04/16/25 12:35 97 Room Air 04/16/25 12:25 100 Nasal Cannula 2 04/16/25 12:15 100 Nasal Cannula 2 04/16/25 12:07 99 Nasal Cannula 4 04/16/25 07:00 98 Room Air 04/16/25 02:55 98 Room Air 04/16/25 02:35 98 Room Air 04/16/25 01:24 04/16/25 01:17 98 Room Air 04/15/25 23:30 99 04/15/25 21:29 99 Room Air 04/15/25 21:29 99 Room Air 04/15/25 21:25 04/15/25 21:10 97 Room Air Pain Intensity Right Upper Abdomen: Pain Intensity: 3 Abdomen: Pain Intensity: 3 Transfer of Care Handoff Completed per policy Notes Mental Status: alert / awake / arousable Patient Amnestic to Procedure: Yes Nausea / Vomiting: adequately controlled Pain: adequately controlled Airway Patency, RR, SpO2: stable & adequate BP & HR: stable & adequate Hydration State: stable & adequate Anesthetic Complications: no major complications apparent
[2025-04-16] MEDS: metroNIDAZOLE 500 MG/100 ML BAG IV SCH (16:18)
[2025-04-16] MEDS: cefTRIAXone SODIUM 2,000 MG/50 ML BAG IV SCH (16:55)
[2025-04-17 04:06] VITALS: TEMP 97.9
[2025-04-17] MEDS: ACETAMINOPHEN 325 MG TAB PO PRN (04:47)
[2025-04-17 05:00] LABS: Hematocrit (blood only) 32.5 % (37.0-47.0); Hemoglobin 10.8 g/dL (12.0-16.0); Immature Granulocytes # (auto) 0.03 K/uL (0.01-0.20); Immature Granulocytes % (auto) 0.3 %; Mean Corpuscular Hemoglobin 29.4 pg (25.0-34.0); Mean Corpuscular Volume 88.6 fL (80.0-100.0); Platelet Count 323 K/uL (130-400); RDW Standard Deviation 42.5 fL (36.4-46.3); Red Blood Count 3.67 M/uL (4.20-5.40); White Blood Count 9.99 K/ul (4.8-10.8)
[2025-04-17 05:14] LABS: Alanine Aminotransferase 23.0 U/L (7-52); Albumin Globulin Ratio 1.1 (0.9-2); Albumin Level 3.0 gm/dl (3.4-5.0); Alkaline Phosphatase 61.0 U/L (34-104); Anion Gap 8.0 (3-11); Bilirubin,Total 0.3 mg/dl (0.2-1.0); Blood Urea Nitrogen 8.0 mg/dl (6-23); Calcium 8.8 mg/dl (8.6-10.3); Carbon Dioxide 22.0 mmol/L (21-32); Chloride 106.0 mmol/L (98-107); Creatinine Clr Calc Pharmacy 141.1 ml/min; Globulin 2.8 gm/dl (2.5-4.0); Glucose 102.0 mg/dl (70-99(Fasting)); Potassium 3.9 mmol/L (3.5-5.1); Sodium 136.0 mmol/L (136-145); Total Protein 5.8 gm/dl (6.0-8.3)
--- NOTE | 2025-04-17 07:42 | Surgery Progress Note ---
Date of Service April 17, 2025 Assessment & Plan (1) S/P laparoscopic cholecystectomy: Plan: POD#1 lap tae WBC 9.9, Hbg 10.8 (11.7), LFTs within normal limits. Vitals are stable Pt with expected post op pain around epigastric incision and RUQ sites but is t olerable On clears without issues, will advance diet to regular and heplock IVF Will discuss tension machine operator recommendations for outpatient oral abx regimen for intraop findings concerning for PID D/c instructions reviewed, will ask her to follow up with us in the office in 2 weeks time (2) PID (acute pelvic inflammatory disease): Admission and Anticipated Discharge Date Admission Date: April 16, 2025 Subjective Patient feeling okay. Some soreness of the epigastric incision. Had some vomiting after procedure yesterday, but none today. Currently tolerating liquids. She is voiding and ambulating. Physical Exam Physical Exam: awake/alert, no distress Respiratory: normal respiratory effort Gastrointestinal (Abdomen): Inspection/Auscultation: + abdominal surgical incision (c/d/i with dermabond, no signs of infection ); abdomen not distended Percussion/Palpation: + abdomen tender (vicky incisional discomfort, epigastric incision and some RUQ discomfort) and abdomen soft Results & Data Vital Signs (Past 12 Hours) Vital Signs Temp Pulse Resp BP Pulse Ox O2 Del Method 04/17/25 04:05 97.9 F 57 L 16 100/63 99 Room Air 04/16/25 22:26 98.1 F 65 16 93/51 L 97 Room Air PG Care Time/CCT Total # of Minutes Spent Total Time Spent with Patient: Total time spent is greater than 50% in coordination of care (as documented) at patient's floor/unit and/or counseling patient: Coding Level of Care Code 62717 Post Operative Follow-Up Diagnoses S/P laparoscopic cholecystectomy Z90.49 PID (acute pelvic inflammatory disease) N73.0
[2025-04-17 08:36] VITALS: BP 104/67; O2SAT 100
--- NOTE | 2025-04-17 09:33 | Ultrasound Report ---
US pelvic complete HISTORY: 19 years-old Female PID, Ovarian cyst . Generalized pelvic pain COMPARISON: None TECHNIQUE: Multiple real-time sonographic images of the deep pelvic structures were obtained transabd ominally assessing grayscale appearance, color and spectral flow FINDINGS: The uterus measures 9.8 x 4.6 x 6.4 cm and is unremarkable. No myometrial mass lesion is seen. Endome trium is 1.2 cm in thickness. The right ovary measures 2.3 x 5.8 x 1.7 cm. Probable involuting follicle within the right ovary harriett ures approximately 2.1 cm on image 14. The left ovary measures 1.9 x 5.1 x 2.1 m. Arterial inflow and venous outflow documented within the bilateral ovaries. Trace likely physiologic free pelvic fluid. IMPRESSION: 1. Unremarkable sonographic appearance of the uterus and ovaries. 2. Probable involuting right ovarian follicle. ACT 112: Negative or not required by law. The above report was generated using voice recognition software. It may contain grammatical, syntax o r spelling errors. Electronically signed by: Domenic Bonds M.D. 04/17/2025 9:32 AM
[2025-04-17] MEDS: metroNIDAZOLE 500 MG TAB PO SCH (09:34)
[2025-04-17] MEDS: DOXYCYCLINE HYCLATE 100 MG CAP PO SCH (09:34)
[2025-04-17 09:43] VITALS: PULSE 81
--- NOTE | 2025-04-18 09:16 | Discharge Summary ---
Date of Service April 17, 2025 Admission HPI Per Admitting Provider The patient is a 19-year-old female who presented to the emergency department with complaints of right upper quadrant abdominal pain. The patient states the pain started roughly 4 days ago that had woken her up from sleep. The patient states that the pain has been ongoing since and has progressively gotten worse. Patient states that the pain at times does radiate into her ribs and to the back of her right shoulder. States that certain movements also makes the pain worse at times. The patient denies any associated nausea, vomiting, fevers or chills. Due to the ongoing pain she came to the ED for further evaluation, upon workup she was found to have a slight leukocytosis of 12.06 and ultrasound imaging concerning for gallstones versus polyps with sludge. At that time general surgery was consulted for further evaluation of the patient. The patient was seen and evaluated early this morning in the emergency department. She is resting comfortably in bed, vital signs are stable, and is nontoxic-appearing. The patient states that despite receiving pain medication she is still having ongoing right upper quadrant pain at this time. On exam she does have tenderness in the right upper quadrant with positive Sampson sign. The patient otherwise denies any medical or surgical history, however she does smoke marijuana regularly. Principal Diagnosis s/p laparoscopic cholecystectomy pelvic inflammatory disease Discharge Exam awake/alert, no distress Respiratory normal respiratory effort Gastrointestinal (Abdomen) Inspection/Auscultation: + abdominal surgical incision (c/d/i with dermabond, no signs of infection ); abdomen not distended Percussion/Palpation: + abdomen tender (vicky incisional discomfort, epigastric incision and some RUQ discomfort) and abdomen soft Discharge Data Allergies Allergy/AdvReac Type Severity Reaction Status Date / Time No Known Allergies Allergy Verified 04/15/25 23:14 Consultations 04/16/25 01:24 ED Decision to Admit Stat 04/16/25 12:14 Consult Gynecology Routine Procedures Performed Operation Date: 04/16/25 09:30 Actual Procedures p Laparoscopic Cholecystectomy(Not Applicable) - Royal Murray DO Ordered Studies 04/15/25 21:40 US gallbladder Stat 04/17/25 US pelvic complete Routine Hospital Course (1) S/P laparoscopic cholecystectomy: This is a 19 y F who presented to the 04/16/25 to [facility] with right sided pain. US showed + sludge with + sonographic sampson's signs. She was admitted and kept NPO with IVF and IV abx. She was taken to the OR for laparoscopic cholecystectomy. Intraoperative findings concerning for purulence and inflammation of the right adnexa. casing running machine tender was consulted and sent cultures and placed her on IV abx for presumed PID. Post operatively otherwise her diet was advanced as tolerated and pain controlled with prn medications. On POD#1 the patient underwent an US which was unremarkable. She was transitioned to oral doxy and flagyl for 14 days per gynecology with instructions to follow up with them in 2-3 weeks. From post surgical perspective she advanced diet as tolerated, incisions were c/d/i, and her pain was controlled. She was discharged to home with instructions to follow up with surgery as well in 2 weeks. (2) PID (acute pelvic inflammatory disease): Total Time Total Time Spent Total Time Spent (In Minutes): 20 Discharge Plan Discharge Items Patient Disposition: Home - Self-Care Reason For Visit: ABDOMINAL PAIN Discharge Diagnosis: Biliary colic s/p laparoscopic cholecystectomy right adnexal inflammation Condition on Discharge: Good Activity: Per Instructions section Lifting: No more than 10 pounds Bathing Comment: can shower. No soaking in baths, hot tubs, or pools x2 weeks Exercise/Sports: Wait until after follow-up appointment Driving/Machine Use: no driving while on narcotics for pain Non-emergency contact: Primary Care Provider and Surgeon Call non-emergency contact if: your pain is not controlled, your temperature is above 101.5, your wound has increased redness and your wound has increased drainage Follow-up/Referrals: Royal Murray DO [Physician] - (follow up in 2 weeks for your post-op check up ) Minerva Ledesma MD [Physician] - (follow up with COMMERCIAL PAINTER within 2-3 weeks time) Sharon Davis D.O. [Primary Care Provider] - Diet: Regular Addtl Attending Provider Instructions: SPECIAL CARE INSTRUCTIONS: * You have skin glue, called Dermabond, over your incisions. You may shower with this on. Do NOT pick at this as it will start to fall off on its own within the next 7-10 days. * You may shower on 04/17/2025 . NO soaking in bath tubs, hot tubs, or pools for 2 weeks * No lifting greater than 10lbs. No exercise until cleared by surgeon. Light walking is accepted. * No driving while taking narcotic pain medication * Please complete the full course of antibiotic prescribed to you. You may follow up with in classroom tutor as an outpatient in 2-3 weeks * No drinking alcohol while taking narcotic pain medication * May use Ibuprofen/Tylenol over the counter for pain as tolerated. Do not exceed 3grams of Tylenol per 24 hours * Expect some swelling and bruising. * Diet - resume your regular diet CALL YOUR DOCTOR IF: * Temperature above 101 degrees, nausea/vomiting, fever/chills * Pain not relieved by pain medicine ordered * There is increased drainage or redness from any incision * You have any unanswered questions or concerns [phone]. FOLLOW UP VISIT: If not already scheduled, please call the office for a follow-up visit. Office Call [facility] for follow up with Community Health Outreach Worker in 2-3 weeks: Office phone number: [phone] Pending Studies at Discharge: Yes Studies:: surgical pathology Stand-Alone Forms: My [facility], Work/School Release, Smoking Cessation Medications and DC Order Prescriptions: New oxycodone 5 mg tablet 5 mg PO Q6H PRN (Reason: pain) Qty: 15 0RF Rx Instructions: Initial therapy post surgery doxycycline hyclate 100 mg capsule 100 mg PO Q12H 14 Days Qty: 28 0RF metronidazole 500 mg tablet 500 mg PO Q12H 14 Days Qty: 28 0RF Discharge Orders: Discharge Order (Routine); Ordered 04/17/25 Ordered By: Angélica Harden Admission Data Admit Date/Time: 04/16/25 12:04 Attending Provider: Royal Murray Admit Provider: Royal Murray Primary Care Provider: Sharon Davis Other Providers: Royal Murray; Minerva Ledesma Other Interventions: Discharge Summary Assessment (RN) Last Done: 04/17/25 09:40 Coding Level of Care Code 84501 IN/OBS DISCH 30 MIN/LESS Diagnoses S/P laparoscopic cholecystectomy Z90.49 PID (acute pelvic inflammatory disease) N73.0 Time Spent (min) 20
[2025-04-18 12:32] LABS: Chlam trach RNA(Genit,Ureth,Ur DETECTED (NotDetected); GC(Neis gon)RNA(Genit,Ureth,Ur Not Detected (NotDetected)
== END 2025-04-17 12:25 | disposition home or self-care (01) ==
LOC: ED 21:05 → 3W 21:05